=== PATIENT | female | born 1990 | race Caucasian/White ===

== ENCOUNTER 2018-10-12 03:02 | Emergency (ER) | payer MEDICAID ==
[~2018-10-12] VITALS: Ht 165.1 cm; Wt 68.0 kg
[2018-10-12 03:10] VITALS: BP 133/82
[2018-10-12 03:54] LABS: Basophils # (auto) 0 uL; Eosinophils # (auto) 0 uL; Eosinophils % (auto) 0.3 % (0.0-7.0); Lymphocytes # (auto) 2.5 uL; Monocytes # (auto) 0.5 uL
[2018-10-12 03:56] LABS: Basophils % (auto) 0.4 % (0.0-2.0); Hematocrit 41.9 % (36.0-46.0); Hemoglobin 14.5 g/dL (12.2-16.2); Lymphocytes % (auto) 27.9 % (10.0-50.0); Mean Corpuscular Hemoglobin 34.6 pg (28.0-32.0); Mean Corpuscular Hgb Conc. 34.7 g/dL (32.0-36.0); Mean Corpuscular Volume 99.6 fL (80.0-100.0); Monocytes % (auto) 6.1 % (0.0-12.0); Neutrophils # (auto) 5.8 uL; Neutrophils % (auto) 65.3 % (37.0-80.0); Platelet Count (auto) 335 10^3/uL (140-450); Red Blood Cells 4.21 10^6/uL (4.0-5.20); Red Cell Distribution Width 12.2 % (11.8-14.3); White Blood Cell 8.8 10^3/uL (4.4-10.8)
[2018-10-12 04:07] LABS: Albumin 4.5 g/dL (3.4-5.0); BUN/Creatinine Ratio 7.4; Salicylate < 1.7 mg/dL (2.8-20.0)
[2018-10-12 04:08] LABS: Acetaminophen < 2.0 ug/mL (10-30)
[2018-10-12 04:14] LABS: Bilirubin, Total 0.4 mg/dL (0.2-1.0); Total Protein 9.1 g/dL (6.4-8.2)
[2018-10-12] MEDS ORDERED: POTASSIUM EFFERVESENT TAB 25 MEQ PO ONE (07:30)
== END 2018-10-12 08:44 | disposition home or self-care (01) ==
LOC: EDBD 03:02 → ER 03:02
DX: S80.11XA Contusion of right lower leg, initial encounter (principal); E87.6 Hypokalemia; F10.10 Alcohol abuse, uncomplicated; R73.9 Hyperglycemia, unspecified; V47.6XXA Car passenger injured in collision with fixed or stationary object in traffic accident, initial encounter; Y93.89 Activity, other specified; Y99.8 Other external cause status; Y92.488 Other paved roadways as the place of occurrence of the external cause
CPT/HCPCS: 36415; 70450; 71045; 72125; 80053; 80320; 80329; 84702; 85025